=== PATIENT | female | born 1950 | race American Indian/Alaskan Native ===

== ENCOUNTER 2019-09-26 14:07 | Outpatient (CLI) | payer MEDICARE, OTHER ==
--- NOTE | 2019-09-26 15:19 | Ultrasound Report ---
ULTRASOUND-GUIDED NEEDLE CORE BIOPSY RIGHT AXILLARY LYMPH NODE WITH CLIP PLACEMENT CLINICAL: Bilateral axillary lymphadenopathy. FINDINGS: The procedure was explained to the patient and informed consent was obtained. Ultrasound demonstrated the previously identified abnormal lymph nodes.. I marked the breast with a felt tip marker and a timeout was called. The skin was prepped with Chloro -Prep and anesthetized with 1% lidocaine. Needle core biopsy of the largest lymph node was performed through a small dermatotomy using ultrasou nd guidance, 2% lidocaine with epinephrine for deep anesthesia and a 18-gauge Achieve biopsy device. 2 cores were obtained and placed in media for flow cytometry and 2 cores were obtained and placed in formalin. A clip was deployed within the lymph node. The patient tolerated the procedure well and there were no apparent complications. Hemostasis was ach ieved with minimal effort and a sterile dressing was applied. IMPRESSION: Uncomplicated ultrasound guided needle core biopsy with clip placement right axillary lym ph node. Signer Name: Darren Banda MD Signed: 09/26/2019 3:15 PM Workstation Name: [id number]
== END 2019-09-26 14:08 | disposition home or self-care (01) ==
LOC: SPVWC 14:07
PROVIDERS: ATTEND Surgery
DX: R59.9 Enlarged lymph nodes, unspecified (principal)
CPT/HCPCS: 38505; 76942; 88305